=== PATIENT | female | born 1975 | race Caucasian/White ===

== ENCOUNTER 2018-08-18 09:43 | Outpatient (CLI) | payer BC ==
[~2018-08-18] VITALS: Ht 170.2 cm; Wt 68.0 kg
[2018-08-18 10:55] VITALS: BP 124/74
[2018-08-18] MEDS ORDERED: RT-ALBUTEROL SULF 2.5 MG/3 ML PRE-MIX VIAL INH PRN (11:15)
[2018-08-18] MEDS ORDERED: diphenhydrAMINE 50 MG/ML INJ (BENADRYL) IV PRN (11:15)
[2018-08-18] MEDS ORDERED: HYDROCORTISONE 100 MG/2 ML (Solu-CORTEF) VIAL IV PRN (11:15)
[2018-08-18] MEDS ORDERED: EPINEPHrine INJECTION 1 MG/ML AMP IM PRN (11:15)
[2018-08-18] MEDS: IRON DEXTRAN 25 MG/NS 6.25 ML TOTAL VOLUME IV ONE ×3 (11:26)
[2018-08-18] MEDS: IRON DEXTRAN 1,000 MG/NS 250 ML IVPB IV ONE ×2 (11:57)
[2018-08-18] MEDS: NS IV 1000 ML 1,000 ML IV SCH (13:00)
[2018-08-18 13:02] VITALS: BP 124/74
--- NOTE | 2018-08-18 14:19 | Diagnostic Imaging Report ---
PROCEDURE: US Non-ob pelvis comp/trans. TECHNIQUE: Multiple realtime grayscale images were obtained of the pelvis in various projections endovaginally. Transabdominal imaging was also performed. INDICATION: Menorrhagia and anemia. FINDINGS: Uterus measures 9.7 x 5.3 x 4.8 cm. The endometrium is 4 mm in thickness. No myometrial mass is identified. The right ovary measures 3.3 x 1.8 x 2.3 cm and the left ovary measures 4.3 x 2.4 x 2.8 cm. Left ovary does contain a 2.2 cm cyst. There is blood flow to the ovaries. A small amount of free fluid is present. IMPRESSION: 2.2 cm left ovarian cyst. No other significant abnormality is detected. Dictated by: Dictated on workstation # [id number]
== END 2018-08-18 13:02 | disposition home or self-care (01) ==
LOC: RAD 09:43
PROVIDERS: ATTEND Obstetrics & Gynecology
DX: N83.202 Unspecified ovarian cyst, left side (principal); N84.1 Polyp of cervix uteri; N92.0 Excessive and frequent menstruation with regular cycle; D50.9 Iron deficiency anemia, unspecified
CPT/HCPCS: 76830; 76856; 96365

== ENCOUNTER 2020-11-07 05:41 | Outpatient (CLI) | payer BC ==
[~2020-11-07] VITALS: Ht 170.2 cm; Wt 73.6 kg
[2020-11-08] MEDS ORDERED: ATOR40TA70 PO (11:13)
[2020-11-08] MEDS ORDERED: ASPI-999 PO (11:13)
== END 2020-11-08 16:31 | disposition home or self-care (01) ==
LOC: PREOP 05:41
PROVIDERS: ATTEND Obstetrics & Gynecology
DX: Z01.818 Encounter for other preprocedural examination (principal)

== ENCOUNTER 2020-11-20 11:33 | Day surgery (SDC) | payer BC ==
[~2020-11-20] VITALS: Ht 170 cm; Wt 73.6 kg
[2020-11-20] VITALS (11 sets, daily range): BP systolic 116–163; BP diastolic 56–84
--- NOTE | 2020-11-20 08:13 | Progress Note-Pre Operative ---
Pre-Operative Progress Note H&P Reviewed The H&P was reviewed, patient examined and no changes noted. Date Seen by Provider: Nov 20, 2020 Time Seen by Provider: 14:25 Date H&P Reviewed: Nov 20, 2020 Time H&P Reviewed: 14:25 Pre-Operative Diagnosis: Menorrhagia CRUZ DEVRIES MD Nov 20, 2020 08:13
--- NOTE | 2020-11-20 08:14 | Progress Note-Post Operative ---
Post-Operative Progess Note Surgeon (s)/Operations/Dispatch (s) Surgeon CRUZ DEVRIES MD Operations/Dispatch: Leyla Serna RN Pre-Operative Diagnosis Menorrhagia/adenomyosis Post-Operative Diagnosis Same Procedure & Operative Findings Date of Procedure 11/20/20 Procedure Performed/Findings total Laparoscopic hysterectomy with bilateral salpingectomy Anesthesia Type General endotracheal Estimated Blood Loss Estimated blood loss (mL): minimal Specimens/Packing Specimens Removed Uterus and fallopian tubes CRUZ DEVRIES MD Nov 20, 2020 08:14
--- NOTE | 2020-11-20 08:18 | Discharge Inst-Surgical ---
Discharge Inst-Surgical Depart Medication/Instructions New, Converted or Re-Newed RX: Transmitted to Pharmacy Consults/Follow Up Patient Instructions: As directed Orders & Referrals Follow Up Appt: Return to clinic on Wednesday, November 22, 2020 at 9:30 AM for staple removal Call to make follow up appt. for patient in 4 weeks. Activity: Rest for 24 hours, than as tolerated. Wound Care: May remove Band-Aid tomorrow. Replace as desired. Keep incisions clean and dry. Wash daily with soap and water. Diet: As tolerated shower or tub bathe as desired. No driving for 24 hours, no alcoholic beverages for 24 hours, and nothing per vagina (no tampons, douching, or intercourse) for 8 weeks. Patient to return to the clinic as soon as possible for: Temperature greater than 101F, Severe Pain, Foul discharge from incision or vagina, Excessive Bleeding (more than a period). Activity Activity as Tolerated: No Diet Discharge Diet: No Restrictions CRUZ DEVRIES MD Nov 20, 2020 08:18
[~2020-11-20 11:33] MED LIST: ASPI-999 PO; ATOR40TA70 PO; DOCU-143 PO; IBUP-1780 PO; OXYC1TAB87 PO
[2020-11-20] MEDS ORDERED: ceFAZolin INJECTION 1,000 MG in WATER (STERILE) FOR INJECTION 10 ML IV ONE (12:15)
[2020-11-20] MEDS: LACTATED RINGERS 1,000 ML IV PRN ×2 (12:21→15:00)
[2020-11-20] MEDS ORDERED: KETOROLAC 30 MG/ML VIAL IVP SCH (12:30)
[2020-11-20] MEDS ORDERED: ONDANSETRON 4 MG/2 ML (SDV) Z0FRAN IVP PRN ×2 (12:30→16:15)
[2020-11-20] MEDS ORDERED: fentaNYL INJ 100 MCG/2 ML AMP IVP PRN (12:30)
[2020-11-20] MEDS ORDERED: BENZOCAINE/MENTHOL (DERMOPLAST) 56 ML CAN TP PRN (12:30)
[2020-11-20 12:42] LABS: BASOPHILS # (AUTO) 0.1 10^3/uL (0.0-0.1); BASOPHILS % (AUTO) 1 % (0-10); EOSINOPHILS # (AUTO) 0.4 10^3/uL (0.0-0.3); EOSINOPHILS % (AUTO) 4 % (0-10); HEMATOCRIT 34 % (35-52); HEMOGLOBIN 9.4 g/dL (11.5-16.0); LYMPHOCYTES # (AUTO) 2.9 10^3/uL (1.0-4.0); LYMPHOCYTES % (AUTO) 32 % (12-44); MEAN CORPUSCULAR HEMOGLOBIN 20 pg (25-34); MEAN CORPUSCULAR HGB CONC 27 g/dL (32-36); MEAN CORPUSCULAR VOLUME 74 fL (80-99); MONOCYTES # (AUTO) 0.8 10^3/uL (0.0-1.0); MONOCYTES % (AUTO) 9 % (0-12); NEUTROPHILS # (AUTO) 4.8 10^3/uL (1.8-7.8); NEUTROPHILS % (AUTO) 54 % (42-75); PLATELET COUNT 276 10^3/uL (130-400); WHITE BLOOD COUNT 8.9 10^3/uL (4.3-11.0)
[2020-11-20] MEDS ORDERED: ONDANSETRON 4 MG/2 ML (SDV) Z0FRAN ONE (14:05)
[2020-11-20] MEDS ORDERED: proPOfol 200 MG/20 ML (DIPRIVAN) VIAL IV ONE (14:05)
[2020-11-20] MEDS ORDERED: ROCURONIUM 10 MG/ML 5 ML SYRINGE IV ONE (14:05)
[2020-11-20] MEDS ORDERED: LIDOCAINE PF 2% 5 ML (XYLOCAINE) VIAL ONE (14:05)
[2020-11-20] MEDS ORDERED: MIDAZOLAM 2 MG/2 ML (VERSED) VIAL ONE (14:06)
[2020-11-20] MEDS ORDERED: fentaNYL INJ 100 MCG/2 ML AMP ONE ×2 (14:06→15:08)
[2020-11-20] MEDS ORDERED: LIDOCAINE/EPI 1%-1:100,000 (XYLOCAINE) 20ML ONE (14:26)
[2020-11-20] MEDS ORDERED: SEVOFLURANE (ULTANE) 15 ML INHAL SOLN ONE (15:23)
--- NOTE | 2020-11-20 16:12 | Anesthesia-General Post-Op ---
General Patient Condition Mental Status/LOC: Same as Preop Cardiovascular: Satisfactory Nausea/Vomiting: Absent Respiratory: Satisfactory Pain: Controlled Complications: Absent Post Op Complications Complications None Follow Up Care/Instructions Patient Instructions None needed. Anesthesia/Patient Condition Patient Condition Patient is doing well, no complaints, stable vital signs, no apparent adverse anesthesia problems. No complications reported per nursing. DELFINA RANDOLPH CRNA Nov 20, 2020 16:12
[2020-11-20] MEDS ORDERED: GLYCOPYRROLATE 0.2 MG/ML (ROBINUL) 2 ML VIAL ONE (16:15)
[2020-11-20] MEDS ORDERED: morphine INJ 10 MG/ML 1ML (SYR OR VIAL) IVP ONE (16:15)
[2020-11-20] MEDS ORDERED: MEPERIDINE (DEMEROL) INJ 50 MG/ML IVP ONE (16:15)
[2020-11-20] MEDS ORDERED: NEOSTIGMINE 3 MG/3 ML VIAL ONE (16:15)
[2020-11-20] MEDS: D5 LR IV SOLUTION 1,000 ML IV SCH (17:10)
[2020-11-20] MEDS: KETOROLAC 30 MG/ML VIAL IVP SCH (21:58)
[2020-11-20] MEDS: DOCUSATE SODIUM 100 MG (COLACE) CAP PO SCH (21:58)
[2020-11-20] MEDS: oxyCODONE/APAP 5/325MG (PERCOCET 5) TABLET PO PRN (22:25)
[2020-11-21] MEDS: D5 LR IV SOLUTION 1,000 ML IV SCH (01:19)
[2020-11-21 01:30] VITALS: BP 117/72
[2020-11-21] MEDS: oxyCODONE/APAP 5/325MG (PERCOCET 5) TABLET PO PRN (01:30)
--- OUTSIDE RECORDS SUMMARY | 2020-11-21 02:04 | XMS REPORT ---
Author Mally Rosales Organization [facility] Address [address] [place], [place] [id number] Care Team Providers Care Perinatal Technician Name Role Phone Kena Avalos PCP Allergies and Adverse Reactions Name Reaction Notes NO KNOWN DRUG ALLERGIES Plan of Treatment Planned Activity Comments Planned Date Planned Time Plan/Goal Chest PA and Lateral - Clinic 11/11/2020 12:00 AM Medications Active Name Start Date Estimated Completion Date SIG Co mments aspirin 81 mg oral tablet,delayed release (DR/EC) 08/05/2020 07/31/2021 take 1 tablet (81 mg) by oral route once daily for 90 days Lipitor 20 mg oral tablet 08/05/2020 07/31/2021 take 2 tablets (40 mg) by oral route once daily at bedtime for 90 days Name Start Date Expiration Date SIG Comments amitriptyline 25 mg oral tablet 11/04/2009 12/04/2009 take 1 tablet (25 mg) by oral route daily for 30 days phentermine 37.5 mg oral tablet 04/23/2010 05/23/2010 take 1 tablet (37.5 mg) by oral route once daily before breakfast for 30 days prednisone 20 mg oral tablet 01/09/2015 01/14/2015 sushma e 1 tablet by oral route daily for 5 days prednisone 20 mg tablet 10/24/2020 10/29/2020 take 2 t ablets by oral route daily for 5 days Augmentin 875 mg-125 mg tablet 10/24/2020 10/31/2020 t deepti 1 tablet by oral route every 12 hours for 7 days Discontinued Name Start Date Discontinued Date SIG Comments phentermine 37.5 mg oral tablet 07/14/2013 08/30/2014 take 1 tablet (37.5 mg) by oral route once daily before breakfast for 30 days Integra 125-40-3 mg oral capsule 08/27/2014 03/04/2020 take 1 capsule by oral route daily cyclobenzaprine 10 mg oral tablet 03/04/2020 07/03/2020 take 1 tablet (10 mg) by oral route 3 times per day as needed Problem List Not available. Vital Signs Date Time BP-Sys(mm[Hg] BP-Mireya(mm[Hg]) HR(bpm) RR(rpm) Temp WT HT HC BMI BSA BMI Percentile O2 Sat(%) 11/11/2020 3:13:00 PM 120 mm[Hg] 80 mm[Hg] 76 {beats}/min 16 rpm 98.8 F 164.5 lbs 67 in 25.7641 kg/m2 1.8781 m2 98 % 09/25/2020 8:40:00 AM 138 mm[Hg] 80 mm[Hg] 90 {beats}/min 16 rpm 98.6 F 160.5 lbs 99 % 08/09/2020 2:27:00 PM 110 mm[Hg] 76 mm[Hg] 91 {beats}/min 16 rpm 97.7 F 157 lbs 67 in 24.5894 kg/m2 1.8348 m2 98 % 07/19/2020 2:11:00 PM 118 mm[Hg] 80 mm[Hg] 100 {beats}/min 16 rpm 98.1 F 149.375 lbs 67 in 23.40 kg/m2 1.79 m2 97 % 07/03/2020 9:51:00 AM 124 mm[Hg] 74 mm[Hg] 87 {beats}/min 16 rpm 98.1 F 150.375 lbs 67 in 23.5518 kg/m2 1.7957 m2 97 % 03/04/2020 6:57:00 PM 136 mm[Hg] 76 mm[Hg] 105 {beats}/min 18 rpm 98.8 F 151.5 lbs 67 in 23.73 kg/m2 1.80 m2 100 % 12/26/2014 10:32:00 AM 127 mm[Hg] 73 mm[Hg] 72 {beats}/min 97.7 F 161 lbs 67 in 25.2159 kg/m2 1.858 m2 08/30/2014 3:09:00 PM 139 mm[Hg] 83 mm[Hg] 73 {beats}/min 97.5 F 16 0 lbs 67 in 25.06 kg/m2 1.85 m2 07/14/2013 9:06:00 AM 122 mm[Hg] 64 mm[Hg] 72 {beats}/min 18 rpm 97.1 F 162.375 lbs 67 in 25.4313 kg/m2 1.8659 m2 100 % 04/09/2011 9:58:00 AM 147 lbs 67 in 23.02 kg/ m2 1.78 m2 08/04/2010 9:21:00 AM 110 mm[Hg] 72 mm[Hg] 143 lbs 67 in 22.3967 kg/m2 1.7511 m2 04/23/2010 8:46:00 AM 102 mm[Hg] 78 mm[Hg] 68 {beats}/min 20 rpm 144 lbs 03/19/2010 3:41:00 PM 110 mm[Hg] 72 mm[Hg] 151.125 lbs 03/19/2010 1:36:00 PM 151.125 lbs 06/14/2009 2:07:00 PM 130 mm[Hg] 81 mm[Hg] 84 {beats}/min 18 rpm 158 .625 lbs Social History Name Description Comments Tobacco Never smoker 03/04/2020 - Alcohol Never Exercise History of Procedures Date Ordered Description Order Status 12/26/2014 12:00 AM MAMMOGRAM BOTH BREASTS Reviewed 01/02/2015 12:00 AM Breast ultrasound Reviewed 01/02/2015 12:00 AM COMPUTER DX MAMMOGRAM ADD-ON Reviewed 06/14/2009 12:00 AM CYTOPATH C/V THIN LAYER Reviewed 06/14/2009 12:00 AM SPECIMEN HANDLING OFFICE-LAB Reviewed 10/08/2009 12:00 AM URINALYSIS AUTO W/SCOPE Reviewed 03/04/2020 12:00 AM Decadron 8mg Injection Reviewed 03/04/2020 12:00 AM Depo-Medrol 80mg Injection Reviewed 03/04/2020 12:00 AM THER/PROPH/DIAG INJ SC/IM Reviewed 07/03/2020 12:00 AM ROUTINE VENIPUNCTURE Reviewed 07/03/2020 12:00 AM COMPREHEN METABOLIC PANEL Returned 07/03/2020 12:00 AM ASSAY THYROID STIM HORMONE Returned 07/03/2020 12:00 AM ASSAY OF FREE THYROXINE Returned 09/25/2020 12:00 AM MRI BRAIN STEM W/O DYE Returned 08/24/2014 12:00 AM COMPLETE CBC W/AUTO DIFF WBC Reviewed 08/24/2014 12:00 AM COMPREHEN METABOLIC PANEL Reviewed 08/24/2014 12:00 AM ASSAY OF IRON Reviewed 08/24/2014 12:00 AM IRON BINDING TEST Reviewed 08/24/2014 12:00 AM ASSAY OF FOLIC ACID SERUM Reviewed 08/24/2014 12:00 AM VITAMIN B-12 Reviewed 08/24/2014 12:00 AM OCCULT BLOOD FECES Reviewed 08/30/2014 12:00 AM SPECIMEN HANDLING OFFICE-LAB Reviewed 08/30/2014 12:00 AM CYTOPATH C/V THIN LAYER Reviewed Results Summary Date and Description Results 08/25/2014 10:43 AM VITAMIN B12 409.0 pg/mLFOLAT E 9.80 ng/mLIRON TOTAL 18.0 ug/dLTransferrin 349.0 mg/dLTIBC Calculation 436 %Saturation Calc 4 GLUCOSE 86.0 mg/dLSODIUM 139.0 mmol/LPOTASSIUM 4.10 mmol/LCHLORIDE 111.0 mmol/LCO2 18.0 mmol/LBUN 11.0 mg/dLCREATININE 0.80 mg/dLSGOT/AST 18.0 IU/LSGPT/ALT 10.0 IU/LALK PHOS 82.0 IU/LTOTAL PROTEIN 6.90 g/dLALBUMIN 4.20 g/dLTOTAL BILI 0.50 mg/dLCALCIUM 10.10 mg/dLAGE 38 GFR NonAA 81 GFR AA 98 eGFR >60 mL/min/1.73 m2eGFR AA* >60 WBC 5.3 RBC 5.12 HGB 9.50 g/dLHCT 33.50 %MCV 65.0 fLMCH 18.60 pgMCHC 28.40 g/dLRDW SD 43 RDW CV 18.70 %PLT 217 NRBC# 0.00 NRBC% 0.0 %NEUT 51.80 %%LYMP 34.90 %%MONO 9.10 %%EOS 2.30 %%BASO 1.90 %#NEUT 2.73 #LYMP 1.84 #M STAN 0.48 #EOS 0.12 #BASO 0.10 MANUAL DIFF NOT IND RBC MORPH SEE COMMENT 08/28/2014 7:46 AM OCC BLD STOOL NEGATIVE History Of Immunizations Not available. History of Past Illness Name Date of Onset Comments Gynecological Exam Jun 14 2009 2:07PM Pap Smear Jun 14 2009 2:07PM Dysuria Oct 08 2009 4:58PM Anemia Contraceptive Counseling Jul 14 2013 9:09AM Body Mass Index [BMI]; body mass index b etween 25-29, adult; body mass index 25.0-25.9, adult Jul 14 2013 9:09AM Anemia Aug 24 2014 11:16AM Routine gynecological examination Aug 30 2014 3:14PM Mastalgia Dec 26 2014 10:35AM Breast lump on right side at 9 o'clock position Dec 26 2014 10:35AM Breast lump on right side at 7 o'clock position Dec 26 2014 10:35AM Breast Lump, right Dec 26 2014 10:59AM Lumbar back pain Mar 04 2020 6:59PM Establishing care with new doctor, encounter for Jul 03 2020 9:56AM Ataxia Jul 03 2020 9:56AM Cerebellar stroke Jul 03 2020 9:56AM Hyperthyroidism Jul 03 2020 9:56AM Hyperthyroidism Jul 03 2020 2:57PM Hypokalemia Jul 03 2020 2:57PM Cerebellar stroke Jul 03 2020 2:57PM Ataxia Jul 19 2020 2:14PM Cerebellar stroke Jul 19 2020 2:14PM Hyperthyroidism Jul 19 2020 2:14PM Ataxia Aug 09 2020 2:30PM Cerebellar stroke Aug 09 2020 2:30PM Elevated BP without diagnosis of hypertension Sep 25 2020 8 :44AM Ataxia Sep 25 2020 8:44AM Cerebellar stroke Sep 25 2020 8:44AM Paresthesia Sep 25 2020 8:44AM Heavy menses Sep 25 2020 8:44AM SOB (shortness of breath) Nov 11 2020 4:12PM Cough Nov 11 2020 4:12PM Payers Insurance Name Company Name Plan Name Plan Number Policy Number Rom cy Group Number Start Date [facility] [id number] N/ A [facility] [id number] N/ A [facility] Benefit Services [facility] Benefit Services [id number] N/A Cigna Cigna [id number] N/A History of Encounters Visit Date Visit Type Provider 11/13/2020 Radiology Kena TOMAS RN 11/11/[address] Gilbert Gunn MD 09/25/[address] Gilbert Gunn MD 08/09/[address] Gilbert Gunn MD 08/01/2020 Laboratory Shivani Loaiza APR N 07/19/[address] Gilbert Gunn MD 07/04/2020 Hospital Gerry Raphael MD 07/03/[address] Gilbert Gunn MD 06/25/2020 Hospital Aaron Youssef MD 03/04/2020 Office visit Nimisha TOMAS RN 12/26/2014 Office visit 12/26/2014 Office visit Trang tesfaye NIGHT FILLER 08/30/2014 Office visit ONEYDA PENA MD 07/14/2013 Office visit Beth Beltran NIGHT FILLER 06/14/2009 Office visit Oneyda Pena MD
--- OUTSIDE RECORDS SUMMARY | 2020-11-21 02:04 | XMS REPORT ---
Author Author Mally Gunn Organization [facility] Address [address] [place], [place] [id number] Care Team Providers Care Mounter Automatic Name Role Phone Gilbert Gunn PCP Allergies and Adverse Reactions Name Reaction Notes NO KNOWN DRUG ALLERGIES Plan of Treatment Planned Activity Comments Planned Date Planned Time Plan/Goal MRI BRAIN INC STEM W/O CONTRAST 09/25/2020 12:00 AM Medications Active Name Start Date [...] by oral route daily for 5 days Discontinued Name Start Date Discontinued Date [...] HC BMI BSA BMI Percentile O2 Sat(%) 09/25/2020 8:40:00 AM 138 mm[Hg] 80 mm[Hg] [...] 12:00 AM ASSAY OF FREE THYROXINE Returned 08/24/2014 12:00 AM COMPLETE CBC W/AUTO [...] 8:44AM Heavy menses Sep 25 2020 8:44AM Payers Insurance Name Company Name Plan Name Plan Number Policy Number Rom cy Group Number Start Date [employer] [id number] N/ A [employer]BS [employer] [facility] [id number] N/ A [facility] Benefit Services [facility] Benefit Services [id number] N/A [employer] C[employer]a [id number] N/A History of Encounters Visit Date Visit Type Provider 09/25/[address] Gilbert Gunn MD 08/09/[address] Gilbert Gunn MD 08/01/2020 Laboratory Shivani Loaiza APR N 07/19/[address] Gilbert Gunn MD 07/04/2020 [facility] Gerry Raphael MD 07/03/[address] Gilbert Gunn MD 06/25/2020 [facility] Aaron Youssef MD 03/04/2020 Office visit Nimisha TOMAS RN 12/26/2014 Office visit 12/26/2014 Office visit Trang tesfaye NAVAL INSPECTOR 08/30/2014 Office visit ONEYDA PENA MD 07/14/2013 Office visit Beth Beltran NAVAL INSPECTOR 06/14/2009 Office visit Oneyda Pena MD
--- OUTSIDE RECORDS SUMMARY | 2020-11-21 02:04 | XMS REPORT ---
Author Mally Rosales Organization [facility] Address [address] [place], [place] [id number] Care Team Providers Care Traffic Court Magistrate Name Role Phone Kena Avalos PCP Allergies [...] Number Rom cy Group Number Start Date [facility] [id number] N/ A [facility] [id number] N/ A [facility] Benefit Services [facility] Benefit Services [id number] N/A [employer] C[employer]a [id number] N/A History of Encounters Visit Date Visit [...] Office visit 12/26/2014 Office visit Trang tesfaye BUNK ASSEMBLER 08/30/2014 Office visit ONEYDA PENA MD 07/14/2013 Office visit Beth Beltran BUNK ASSEMBLER 06/14/2009 Office visit Oneyda Pena MD
--- OUTSIDE RECORDS SUMMARY | 2020-11-21 02:04 | XMS REPORT ---
Author Author Mally Gunn Organization [facility] Address [address] [place], [place] [id number] Care Team Providers Care It Application Development Manager Name Role Phone Gilbert Gunn PCP Allergies and Adverse Reactions Name Reaction Notes NO KNOWN DRUG ALLERGIES Plan of Treatment Not available. Medications Active Name Start Date Estimated Completion [...] 2:30PM Cerebellar stroke Aug 09 2020 2:30PM Payers Insurance Name Company Name Plan Name Plan Number Policy Number Rom cy Group Number Start Date BCBS [employer] [facility] [id number] N/ A [employer]BS [employer] [facility] [id number] N/ A [facility] Benefit Services [facility] Benefit Services [id number] N/A Cign[employer] C[employer]a [id number] N/A History of Encounters Visit Date Visit Type Provider 09/25/[address] Gilbert Gunn MD 08/09/[address] Gilbert Gunn MD 08/01/2020 Laboratory Shivani Loaiza APR N 07/19/[address] Gilbert Gunn MD 07/04/2020 Hospital Gerry Raphael MD 07/03/[address] Gilbert Gunn MD 06/25/2020 [facility] Aaron Youssef MD 03/04/2020 Office visit Nimisha TOMAS RN 12/26/2014 Office visit 12/26/2014 Office visit Trang tesfaye BATTERBOARD SETTER 08/30/2014 Office visit ONEYDA PENA MD 07/14/2013 Office visit Beth Beltran BATTERBOARD SETTER 06/14/2009 Office visit Oneyda Pena MD
--- OUTSIDE RECORDS SUMMARY | 2020-11-21 02:04 | XMS REPORT ---
Author Author Mally Gunn Organization [facility] Address [address] [place], [place] [address] Care Team Providers Care Radio Artist Name Role Phone Gilbert Gunn PCP Allergies and Adverse Reactions Name Reaction Notes NO KNOWN DRUG ALLERGIES Plan of Treatment Planned Activity Comments Planned Date Planned Time Plan/Goal CXR 4+ views 11/11/2020 12:00 AM Medications Active Name Start [...] Plan Name Plan Number Policy Number Rom Group Number Start Date BCBS [facility] [id number] N/ A [facility] [id number] N/ A [facility] Benefit Services [facility] Benefit Services [id number] N/A Cign[employer] Cigna [id number] N/A History of Encounters Visit Date Visit Type Provider 11/11/[address] Gilbert Gunn MD 09/25/[address] Gilbert Gunn MD 08/09/[address] Gilbert Gunn MD 08/01/2020 Laboratory Shivani Loaiza APR N 07/19/[address] Gilbert Gunn MD 07/04/2020 [facility] Gerry Raphael MD 07/03/[address] Gilbert Gunn MD 06/25/2020 [facility] Aaron Youssef MD 03/04/2020 Office visit Nimisha TOMAS RN 12/26/2014 Office visit 12/26/2014 Office visit Trang tesfaye SOUND EFFECTS MANAGER 08/30/2014 Office visit ONEYDA PENA MD 07/14/2013 Office visit Beth Beltran SOUND EFFECTS MANAGER 06/14/2009 Office visit Oneyda Pena MD
--- NOTE | 2020-11-21 02:51 | OPERATIVE REPORT ---
DATE OF SERVICE: 11/20/2020 PREOPERATIVE DIAGNOSIS: Menorrhagia in a patient with a stroke, who cannot take oral contraceptives. POSTOPERATIVE DIAGNOSIS: Menorrhagia in a patient with a stroke, who cannot take oral contraceptives. OPERATIVE PROCEDURE: Total laparoscopic hysterectomy with bilateral salpingectomies. OPERATIVE DESCRIPTION: With the patient in the supine position under satisfactory general anesthesia, she was repositioned in dorsal lithotomy position in the [facility] and prepped and draped in the usual fashion for abdominal and vaginal surgery using the da Didier equipment. Weighted speculum placed in posterior fornix of vagina, cervix exposed and grasped anteriorly with single tooth tenaculum. Uterus was sounded to 14 cm with uterine sound. The cervix was then serially dilated with Anjum dilators to accommodate a Thi II manipulator, which was placed using a 6 mm x 8 cm uterine probe and a 25 mm colpotomy ring. Sutures of #1 Vicryl placed at 3 and 9 o'clock position of the cervix to affix the uterus to the manipulator. The tenaculum and speculum were removed. Mccarthy catheter was placed in the urinary bladder and the patient brought in low dorsal lithotomy position. A 12 mm incision was made 12 cm superior to the umbilicus, 8 mm incisions were made 8 cm lateral to the umbilicus. All incision sites were infiltrated with 1% lidocaine with epinephrine prior to incision. The midline incision had a Veress needle placed into the abdominal cavity and correct placement confirmed with water drop test. The abdomen was insufflated with 2.4 liters of carbon dioxide. The Veress needle was removed and 12 mm Optiview laparoscopic port placed. The abdominal wall was transilluminated and ports of 8 mm were placed through the lateral ports under direct vision. The patient was placed in Trendelenburg allowing the bowel spill out of the pelvis and the da Didier column was advanced on the patient and docked and operative instruments were placed in the right and left lateral ports and I retired to the da Didier console. The console using a vessel sealer on the right and bipolar fenestrated grasper on the left, the pelvis was first examined finding remote tubal sterilization evidenced bilaterally. Both ovaries appeared normal. Uterus was large and mottled and boggy consistent with adenomyosis. There were some Lan-Masters windows in the pelvis. There was no other pathology of note. The appendix was identified. It was a normal vermiform appendix, was left in situ. The right fallopian tube was grasped and elevated. The mesosalpinx was clamped, cauterized and divided with the vessel sealer stepwise across to the uteroovarian pedicle, which was then clamped, cauterized and divided itself, continued across to the round ligament down the broad ligament to the cardinal ligament. The cardinal ligament was treated in the same manner. The same procedure performed on the left, allowing for removal of both fallopian tubes eventually with the uterus. The anterior lower uterine segment peritoneum was now exposed and using a monopolar shear in place of the vessel sealer, the anterior parietal peritoneum was dissected free and the bladder dissected down off the lower uterine segment. Colpotomy incision was started at 12 o'clock position on the colpotomy ring. That incision was continued circumferentially until the entire colpotomy ring was exposed and then the uterus with the fallopian tubes still attached was extracted with some difficulty due to its size through the vagina after removal using a cobra on the left and a rosemary cut needle national dedicated truck driver on the right and 2 sutures of V-Loc barbed suture, the vaginal cuff was closed starting from the right angle continuing almost to the left angle and finishing with the second suture and reperitonealizing the cuff with the balance of that suture. Care was taken to ensure inclusion of the uterine vessel pedicles with the angle stitches. Hemostasis was complete. Good reapproximation was evident. Good support was evident. The procedure at this point was terminated. The operative instruments were removed under direct vision as were the ports. The abdomen was evacuated of the insufflating gas in the process of removing the ports. The skin incisions were stapled after closing the fascia at the supraumbilical incision with a [id number] suture of 2-0 Vicryl. Sponge and needle counts were correct at this point. Blood loss was minimal. A speculum was placed in the vagina. The vaginal cuff examined. It was completely intact and hemostasis. Mccarthy catheter was left to dependent drainage. The patient was now uneventfully awakened from her general anesthesia and transferred to recovery room in stable condition. Job ID: [id number] DocumentID: [id number] Dictated Date: 11/20/2020 15:51:28 Process Controller Date: 11/21/2020 02:51:02 Dictated By: CRUZ DEVRIES MD
[2020-11-21] MEDS: KETOROLAC 30 MG/ML VIAL IVP SCH (03:53)
[2020-11-21 04:00] VITALS: BP 118/69
[2020-11-21] MEDS: DOCUSATE SODIUM 100 MG (COLACE) CAP PO SCH (08:21)
[2020-11-21 08:24] VITALS: BP 118/56
--- NOTE | 2020-11-21 08:36 | Progress Note ---
Standard Progress Note Progress Notes/Assess & Plan Date Seen by a Provider: Nov 21, 2020 Time Seen by a Provider: 08:26 Progress/Assessment & Plan This patient is without complaint. She is ambulating, voiding, tolerating oral intake. Patient has good pain control Vital Signs Date Time Temp Pulse Resp B/P (MAP) Pulse Ox O2 Delivery O2 Flow Rate FiO2 11/21/20 08:24 37.2 74 16 118/56 (76) 100 Room Air 11/21/20 04:00 36.8 77 16 118/69 (85) 97 Room Air 11/21/20 01:30 36.8 83 16 117/72 (87) 96 Room Air 11/20/20 22:00 36.8 72 16 131/68 (89) 96 Room Air 11/20/20 20:00 36.5 78 16 140/71 (94) 100 Room Air 11/20/20 17:40 36.3 56 18 145/69 (94) 100 Room Air 11/20/20 17:06 36.3 55 16 163/69 (100) 100 Room Air 11/20/20 16:55 Room Air 11/20/20 16:50 36.1 17 149/83 (105) 97 Room Air 11/20/20 16:40 17 148/81 (103) 100 OxyMask 10 11/20/20 16:30 16 140/76 (97) 100 OxyMask 10 11/20/20 16:25 OxyMask 10 11/20/20 16:20 16 141/78 (99) 100 OxyMask 10 11/20/20 16:10 20 119/66 (83) 100 OxyMask 10 11/20/20 16:00 OxyMask 10 11/20/20 16:00 36.7 16 116/56 (76) 99 OxyMask 10 11/20/20 12:00 37.1 75 18 120/84 (96) 100 Room Air I & O 11/21/20 07:00 Intake Total 4410 ml Output Total 2775 ml Balance 1635 ml The abdomen is benign Extremities show no clubbing or cyanosis. There is no Homans' sign. Assessment plan Postoperative day #1 doing well. Plan is for discharge home with follow-up in clinic Final Diagnosis Menorrhagia CRUZ DEVRIES MD Nov 21, 2020 08:36
[2020-11-21] MEDS ORDERED: DOCUSATE SODIUM 100 MG (COLACE) CAP PO SCH (09:00)
[2020-11-21 09:05] VITALS: BP 118/56
[2020-11-21] MEDS ORDERED: IBUPROFEN 800 MG (MOTRIN) TAB PO SCH (16:00)
== END 2020-11-21 09:05 | disposition home or self-care (01) ==
LOC: SDC 11:33 → WS 16:35 → SDC 11-21 09:05
PROVIDERS: ATTEND Obstetrics & Gynecology
DX: D25.1 Intramural leiomyoma of uterus (principal); D25.0 Submucous leiomyoma of uterus; D25.2 Subserosal leiomyoma of uterus; N83.8 Other noninflammatory disorders of ovary, fallopian tube and broad ligament; D50.0 Iron deficiency anemia secondary to blood loss (chronic); Z79.82 Long term (current) use of aspirin; Z79.899 Other long term (current) drug therapy
CPT/HCPCS: 36415; 84703; 85025; 86850; 86900; 86901; 87081; 88307; 94664